=== PATIENT | male | born 1965 | race Caucasian/White ===

== ENCOUNTER 2017-01-05 10:03 | Day surgery (SDC) | payer BC ==
[~2017-01-05] VITALS: Ht 175.3 cm; Wt 130.6 kg
[~2017-01-05 10:03] MED LIST: ATORVASTATIN CA20 MG PO; BENADRYL50 MG PO; Benadryl PO; COUMADIN,JANTOVE2 MG PO; COUMADIN,JANTOVE5 MG PO; COUMADIN7.5 MG PO; EFFEXOR75 MG PO; FLOMAX0.4 MG PO; MOTRIN600 MG PO; NAPROSYN500 MG PO; NUVIGIL150 MG PO; OSTEO BI-FLEX1 EACH PO; PERCOCET 10-321 EACH PO; PERCOCET 5/31 TABLET PO; PREDNISONE50 MG PO; SINGULAIR10 MG PO; UROCIT-K10 MEQ PO; VYTORIN 10-401 EACH PO; ZYRTEC10 MG PO
[2017-01-05 12:00] LABS: METH RESISTANT S AUREUS PCR NEGATIVE (NEGATIVE); PROBE CHECK PASS; SPECIMEN PROCESSING CONTROL PASS
[2017-01-05 18:06] VITALS: BP 142/73
[2017-01-05 19:20] VITALS: BP 117/62
[2017-01-05 23:50] VITALS: BP 127/62
[2017-01-06 03:35] VITALS: BP 111/53
[2017-01-06 05:56] LABS: EOSINOPHIL (%) 0 % (0-5); IMMATURE GRANULOCYTE (%) 0.6 % (0.0-0.7); IMMATURE GRANULOCYTE COUNT 0.1 K/uL; INSTRUMENT ABS NEUTROPHIL CT 13.6 K/uL; LYMPHOCYTE COUNT 3.5 K/uL (1.0-2.8); MCH 29.1 PG (29.0-34.0); MCHC 32.4 G/DL (30.0-36.0); MCV 89.8 FL (86-99); MEAN PLAT.VOLUME 9.9 uM^3 (9.0-12.4); MONOCYTE (%) 3.2 % (3-12); MONOCYTE COUNT 0.6 K/uL (0-0.8); NEUTROPHIL (%) 76.4 % (45-76); NEUTROPHIL COUNT 13.6 K/uL (1.8-6.4); PLATELET COUNT 400 K/uL (156-360); RBC DIS.WIDTH-CV 14.5 % (11.8-14.6); RBC DIS.WIDTH-SD 47.6 % (39-53); RED BLOOD COUNT 4.23 M/uL (4.00-5.50)
[2017-01-06 06:16] LABS: WHITE BLOOD COUNT 17.8 K/uL (4.1-10.2)
[2017-01-06 06:43] LABS: ANION GAP 8 MEQ/L (2-14); CHLORIDE 107 MEQ/L (99-109); GFR ESTIMATE (CALCULATED) > 59 mL/min/; GLUCOSE 138 mg/dL (70-99); POTASSIUM 4.6 MEQ/L (3.7-5.4); SAMPLE HEMOLYSIS CHECK 0; SAMPLE ICTERIC CHECK 0; SAMPLE LIPEMIA CHECK 0; SODIUM 140 MEQ/L (136-147); UREA NITROGEN (BUN) 12 mg/dL (9-23)
[2017-01-06 07:00] VITALS: BP 112/56
[2017-01-06 07:25] LABS: INTER. NORMALIZED RATIO 2.3; PROTHROMBIN TIME 24.5 (9.2-11.2)
[2017-01-06 10:28] LABS: EOSINOPHIL (%) 0 % (0-5); HEMATOCRIT 39.2 % (38.0-50.0); IMMATURE GRANULOCYTE (%) 0.4 % (0.0-0.7); IMMATURE GRANULOCYTE COUNT 0.1 K/uL; INSTRUMENT ABS NEUTROPHIL CT 15.5 K/uL; LYMPHOCYTE COUNT 4.9 K/uL (1.0-2.8); MCH 28.8 PG (29.0-34.0); MCHC 32.1 G/DL (30.0-36.0); MCV 89.7 FL (86-99); MEAN PLAT.VOLUME 9.5 uM^3 (9.0-12.4); MONOCYTE (%) 4.3 % (3-12); MONOCYTE COUNT 0.9 K/uL (0-0.8); NEUTROPHIL (%) 72.3 % (45-76); NEUTROPHIL COUNT 15.5 K/uL (1.8-6.4); PLATELET COUNT 417 K/uL (156-360); RBC DIS.WIDTH-CV 14.5 % (11.8-14.6); RBC DIS.WIDTH-SD 47.9 % (39-53); RED BLOOD COUNT 4.37 M/uL (4.00-5.50); WHITE BLOOD COUNT 21.4 K/uL (4.1-10.2)
[2017-01-06] MEDS ORDERED: CLOPIDOGREL75 MG PO (10:53)
== END 2017-01-06 12:11 | disposition home or self-care (01) ==
LOC: CATH 10:03 → 2SOUTH 14:20 → 4EAST 14:20 → 2SOUTH 14:20 → 4EAST 17:30
PROVIDERS: Internal Medicine Cardiovascular Disease; Physician Assistant Medical
DX: I25.10 Atherosclerotic heart disease of native coronary artery without angina pectoris (principal); E78.5 Hyperlipidemia, unspecified; E66.01 Morbid (severe) obesity due to excess calories; Z68.41 Body mass index [BMI] 40.0-44.9, adult; I27.82 Chronic pulmonary embolism; Z86.718 Personal history of other venous thrombosis and embolism; Z79.01 Long term (current) use of anticoagulants; Z87.891 Personal history of nicotine dependence
CPT/HCPCS: 93458; 92978; C9600; 80048; 85025; 85025 91; 85347; 85610; 87641; 93005; C1725; C1769; C1874; C1887; G0378; J0461; J1200; J1644; J2250; J2405; J2930; J3010; J3246; J7050; S0028

== ENCOUNTER 2017-03-14 15:21 | Observation (INO) | payer BC ==
[~2017-03-14] VITALS: Ht 175.3 cm; Wt 128.7 kg
[~2017-03-14 15:21] MED LIST changes: +CLOPIDOGREL75 MG PO; +COUMADIN5 MG PO; -COUMADIN7.5 MG PO; -EFFEXOR75 MG PO; +MICRO-K10 ME2 PO; -UROCIT-K10 MEQ PO; +VENLAFAXINE HCL75 M3 PO; +ZYRTEC10 M3 PO; -ZYRTEC10 MG PO
[2017-03-14 16:14] LABS: BASOPHIL COUNT 0.1 K/uL (0-0.1); EOSINOPHIL (%) 1.9 % (0-5); EOSINOPHIL COUNT 0.3 K/uL (0-0.3); HEMATOCRIT 37.2 % (38.0-50.0); IMMATURE GRANULOCYTE (%) 0.3 % (0.0-0.7); INSTRUMENT ABS NEUTROPHIL CT 6.3 K/uL; LYMPHOCYTE COUNT 5.7 K/uL (1.0-2.8); MCH 28.7 PG (29.0-34.0); MCHC 32.5 G/DL (30.0-36.0); MCV 88.2 FL (86-99); MONOCYTE (%) 7.1 % (3-12); NEUTROPHIL (%) 47.2 % (45-76); NEUTROPHIL COUNT 6.3 K/uL (1.8-6.4); PLATELET COUNT 348 K/uL (156-360); RBC DIS.WIDTH-CV 13.8 % (11.8-14.6); RBC DIS.WIDTH-SD 44.4 % (39-53); RED BLOOD COUNT 4.22 M/uL (4.00-5.50); WHITE BLOOD COUNT 13.3 K/uL (4.1-10.2)
[2017-03-14 16:18] LABS: INTER. NORMALIZED RATIO 2.7; PROTHROMBIN TIME 30.9 SEC (10.2-12.9)
[2017-03-14 16:21] LABS: PTT 37.1 SEC (25-37)
[2017-03-14 16:26] LABS: TOTAL BILIRUBIN 0.2 mg/dL (0.0-1.0)
[2017-03-14 16:27] LABS: ALKALINE PHOSPHATASE 80 IU/L (3-129)
[2017-03-14 16:29] LABS: DIRECT BILIRUBIN 0.1 mg/dL (0.0-0.3)
[2017-03-14 16:30] LABS: LIPASE 88 U/L (1.0-51.0)
[2017-03-14 16:37] LABS: TROP-I INTERPRETATION NEGATIVE; TROPONIN-I < 0.01 ng/mL (0.0-0.30)
[2017-03-14 20:04] LABS: CHLORIDE 105 MEQ/L (99-109); GFR ESTIMATE (CALCULATED) > 59 mL/min/; GLUCOSE 83 mg/dL (70-99); POTASSIUM 3.8 MEQ/L (3.7-5.4); SODIUM 139 MEQ/L (136-147); UREA NITROGEN (BUN) 14 mg/dL (9-23)
[2017-03-14] MEDS ORDERED: NITROSTAT0.4 MG SL (21:52)
[2017-03-14] MEDS ORDERED: PLAVIX75 MG PO (21:52)
[2017-03-14 23:21] VITALS: BP 110/61
[2017-03-15 01:10] LABS: TROP-I INTERPRETATION NEGATIVE; TROPONIN-I < 0.01 ng/mL (0.0-0.30)
[2017-03-15 03:01] LABS: METH RESISTANT S AUREUS PCR NEGATIVE (NEGATIVE)
[2017-03-15 03:06] LABS: PROBE CHECK PASS; SPECIMEN PROCESSING CONTROL PASS
[2017-03-15 04:00] VITALS: BP 135/73
[2017-03-15 05:39] LABS: HEMATOCRIT 37.1 % (38.0-50.0); MCHC 32.3 G/DL (30.0-36.0); MCV 89.6 FL (86-99); PLATELET COUNT 341 K/uL (156-360); RBC DIS.WIDTH-CV 13.9 % (11.8-14.6); RBC DIS.WIDTH-SD 45.8 % (39-53); RED BLOOD COUNT 4.14 M/uL (4.00-5.50); WHITE BLOOD COUNT 10.5 K/uL (4.1-10.2)
[2017-03-15 05:54] LABS: TROP-I INTERPRETATION NEGATIVE; TROPONIN-I < 0.01 ng/mL (0.0-0.30)
[2017-03-15 05:56] LABS: INTER. NORMALIZED RATIO 2.4; PROTHROMBIN TIME 27.3 SEC (10.2-12.9)
[2017-03-15 06:05] LABS: ANION GAP 6 MEQ/L (2-14); CHLORIDE 109 MEQ/L (99-109); GFR ESTIMATE (CALCULATED) > 59 mL/min/; GLUCOSE 89 mg/dL (70-99); SAMPLE HEMOLYSIS CHECK 0; SAMPLE ICTERIC CHECK 0; SAMPLE LIPEMIA CHECK 0; SODIUM 143 MEQ/L (136-147); UREA NITROGEN (BUN) 12 mg/dL (9-23)
[2017-03-15 07:33] VITALS: BP 120/58
[2017-03-15 11:40] VITALS: BP 153/79
== END 2017-03-15 12:18 | disposition home or self-care (01) ==
LOC: EME 15:21 → EDOF 21:42 → 5WEST 21:42 → ENRESERV 21:55 → 5WEST 23:11
PROVIDERS: Emergency Medicine; Hospitalist
DX: R07.9 Chest pain, unspecified (principal); R07.89 Other chest pain; I25.10 Atherosclerotic heart disease of native coronary artery without angina pectoris; Z95.5 Presence of coronary angioplasty implant and graft; Z86.19 Personal history of other infectious and parasitic diseases; Z86.11 Personal history of tuberculosis; Z79.01 Long term (current) use of anticoagulants; E78.5 Hyperlipidemia, unspecified; E66.01 Morbid (severe) obesity due to excess calories; Z68.41 Body mass index [BMI] 40.0-44.9, adult
CPT/HCPCS: 71010; 71275; 80048; 80048 91; 80076; 83605; 83690; 83880; 84484; 85025; 85027; 85610; 85730; 87641; 93005; 99281; 99285; G0378; J7030

== ENCOUNTER 2018-01-03 21:15 | Emergency (ER) | payer OTHER ==
[~2018-01-03] VITALS: Ht 175.3 cm; Wt 127.9 kg
[~2018-01-03 21:15] MED LIST changes: +NITROSTAT0.4 MG SL; +PLAVIX75 MG PO
[2018-01-03 21:41] LABS: HEMATOCRIT 38.9 % (38.0-50.0); HEMOGLOBIN 13.1 G/DL (12.5-16.6); MCH 30.6 PG (29.0-34.0); MCHC 33.7 G/DL (30.0-36.0); MCV 90.9 FL (86-99); PLATELET COUNT 353 K/uL (156-360); RBC DIS.WIDTH-SD 46.5 % (39-53); RED BLOOD COUNT 4.28 M/uL (4.00-5.50); WHITE BLOOD COUNT 14.3 K/uL (4.1-10.2)
[2018-01-03 21:52] LABS: INTER. NORMALIZED RATIO 3.2
[2018-01-03 21:55] LABS: PTT 42.1 SEC (25-37)
[2018-01-03 22:05] LABS: CHLORIDE 106 mEq/L (99-109); POTASSIUM 3.7 mEq/L (3.7-5.4); SODIUM 142 mEq/L (136-147)
[2018-01-03 22:06] LABS: GLUCOSE 126 mg/dL (70-99)
[2018-01-03 22:13] LABS: CREATININE 0.8 mg/dL (0.6-1.3); GFR ESTIMATE (CALCULATED) > 59 mL/min/ (58.99-99999); UREA NITROGEN (BUN) 18 mg/dL (9-23)
[2018-01-03 22:16] LABS: TROP-I INTERPRETATION NEGATIVE; TROPONIN-I < 0.01 ng/mL (0.0-0.30)
[2018-01-04 01:26] LABS: TROP-I INTERPRETATION NEGATIVE; TROPONIN-I < 0.01 ng/mL (0.0-0.30)
[2018-01-04 01:58] VITALS: BP 131/71
== END 2018-01-04 01:59 | disposition home or self-care (01) ==
LOC: EME 21:15
PROVIDERS: Emergency Medicine
DX: R07.9 Chest pain, unspecified (principal); I25.10 Atherosclerotic heart disease of native coronary artery without angina pectoris; F41.9 Anxiety disorder, unspecified; Z87.442 Personal history of urinary calculi; Z90.49 Acquired absence of other specified parts of digestive tract; Z86.711 Personal history of pulmonary embolism; Z79.01 Long term (current) use of anticoagulants; Z87.891 Personal history of nicotine dependence; Z95.5 Presence of coronary angioplasty implant and graft; Z88.8 Allergy status to other drugs, medicaments and biological substances
CPT/HCPCS: 71046; 80048; 83880; 84484; 85027; 85610; 85730; 93005; 99281; 99284; J7030